=== PATIENT | female | born 1955 | race Caucasian/White ===

== ENCOUNTER 2016-08-15 17:27 | Emergency (ER) | payer MEDICARE ==
[~2016-08-15] VITALS: Ht 158.8 cm; Wt 115.2 kg
[~2016-08-15 17:27] MED LIST changes: -ALBU8.5H INH; -CANA1TAB8 PO; -CARV12.52 PO; -DOXY100T2 PO; -EDOX30TA PO; -HYDR200T PO; -LEVO50TA11 PO; -METH25VI11 IM; -PROP10DR3 BOTH EYES
--- OUTSIDE RECORDS SUMMARY | 2016-08-15 17:32 | XMS REPORT | Referral Summary ---
Author Author [facility] Organization [facility] Address Unknown Phone Unavailable Care Team Providers [facility] Name Role Phone Darcy Zapata Primary Care Physician [phone] Encounter Date(s): 11/29/14 - 11/29/14 [facility] [address] [place] [address] ANIYAH De La Cruz [id number]- [place] Discharge Diagnosis: Psoriatic arthritis Discharge Diagnosis: Antiphospholipid syndrome Discharge Diagnosis: Encounter for long-term (current) use of high-risk medication Discharge Disposition: 01-Home or Self Care Attending Physician: Jayleen Solitario MD Admitting Physician: Jayleen Solitario MD Vital Signs Most recent to 1 oldest [Reference Range]: Temperature Oral 36.9 degC [35.8-37.3 degC] (11/29/14 11:20 AM) Peripheral Pulse 76 bpm Rate [60-100 bpm] (11/29/14 11:20 AM) Respiratory Rate 1 br/min [14-20 br/min] *LOW* (11/29/14 11:20 AM) Blood Pressure 104/64 mmHg [90-140/60-90 mmHg] (11/29/14 11:20 AM) Problem List Condition Effective Dates Status Health Status Informant Cataract(Confirmed) Active CAD (coronary artery Active disease)(Confirmed) Depression(Confirmed Active ) Diabetes Active mellitus(Confirmed) Fibromyalgia(Confirm Active ed) GERD Active (gastroesophageal reflux disease)(Confirmed) Hypertension(Confirm Active ed) Morbid Active patient obesity(Confirmed) Osteoarthritis(Confi Active rmed) Psoriasis(Confirmed) Active Pulmonary Active embolus(Confirmed) Rheumatoid Active arthritis(Confirmed) Sleep Active apnea(Confirmed) Allergies, Adverse Reactions, Alerts Substance Reaction Severity Status azithromycin Active Narcof Active NSAIDs Active Nubain Active Remicade Active Stadol Active Medications Aspirin Low Dose mg, Oral, Daily, 0 Refill(s) Start Date: 11/09/14 Status: Ordered azaTHIOprine 50 mg oral tablet 100 mg 2 tabs, Oral, Daily, # 60 tabs, 1 Refill(s), Pharmacy: [facility], 2 tabs Oral Daily Start Date: 11/29/14 Status: Ordered Benadryl 50 mg, Oral, as needed for allergy symptoms, 0 Refill(s) Start Date: 11/09/14 Status: Ordered CeleXA 40 mg oral tablet mg tabs, Oral, Daily, 0 Refill(s) Start Date: 11/09/14 Status: Ordered Coreg 6.25 mg oral tablet 6.25 mg 1 tabs, Oral, BID, 0 Refill(s) Start Date: 11/09/14 Status: Ordered cyclobenzaprine 10 mg oral tablet 10 mg 1 tabs, Oral, TID, as needed for spasm, 0 Refill(s) Start Date: 11/09/14 Status: Ordered folic acid 1 mg oral tablet mg tabs, Oral, Daily, 0 Refill(s) Start Date: 11/09/14 Status: Ordered Glucophage 1000 mg oral tablet 1,000 mg 1 tabs, Oral, BID, 0 Refill(s) Start Date: 11/09/14 Status: Ordered Imdur 30 mg oral tablet, extended release mg tabs, Oral, qAM, 0 Refill(s) Start Date: 11/09/14 Status: Ordered Klor-Con M20 20 mEq, Oral, to take with lasix, 0 Refill(s) Start Date: 11/09/14 Status: Ordered Lasix 40 mg oral tablet mg tabs, Oral, as needed for edema, 0 Refill(s) Start Date: 11/09/14 Status: Ordered Lipitor 10 mg oral tablet mg tabs, Oral, Bedtime (once a day), 0 Refill(s) Start Date: 11/09/14 Status: Ordered Lovenox 120 mg/0.8 mL injectable solution 120 mg 0.8 mL, SubCutaneous, q12hr, # 5.6 mL, 0 Refill(s) Start Date: 11/09/14 Stop Date: 11/16/14 Status: Ordered Melatonin 3 mg oral tablet 3 mg 1 tabs, Oral, Bedtime (once a day), as needed for insomnia, # 60 tabs, 0 Refill(s) Start Date: 11/09/14 Status: Ordered methadone 10 mg oral tablet 20 mg 2 tabs, Oral, q4hr, 0 Refill(s) Start Date: 11/09/14 Status: Ordered methotrexate 2.5 mg oral tablet 10 mg 4 tabs, Oral, qWeek, 0 Refill(s) Start Date: 11/09/14 Status: Ordered Multiple Vitamins with Zinc oral liquid 0 Refill(s) Start Date: 11/09/14 Status: Ordered Neurontin 600 mg oral tablet 1,200 mg 2 tabs, Oral, TID, 0 Refill(s) Start Date: 11/09/14 Status: Ordered Nitrostat 0.4 mg sublingual tablet 0.4 mg 1 tabs, SubLingual, q5min, as needed for chest pain, 0 Refill(s) Start Date: 11/09/14 Status: Ordered Vitamin B-12 2,000 mcg, SubLingual, Daily, 0 Refill(s) Start Date: 11/09/14 Status: Ordered Vitamin D3 2,000 Intl_Units, Oral, Daily, 0 Refill(s) Start Date: 11/09/14 Status: Ordered Xarelto 1 tabs, Oral, 0 Refill(s) Start Date: 11/29/14 Status: Ordered Zofran 8 mg oral tablet 8 mg 1 tabs, Oral, q6hr, as needed for nausea/vomiting, 0 Refill(s) Start Date: 11/09/14 Status: Ordered Results No data available for this section Immunizations No data available for this section Procedures Procedure Date Related Diagnosis Body Site ACL - Repair of anterior cruciate ligament Appendectomy Carpal tunnel syndrome section Percutaneous coronary intervention Primary fusion of cervical spine Social History Social History Type Response Smoking Status Never smoker Assessment and Plan Extracted from: Title: Office Visit Note Author: Jayleen Solitario MD Date: 11/29/14 Assessment/Plan 1.Psoriatic arthritis We have limitation the use of the methotrexate given her elevated liver tests. She was given a lab slipto recheck these. We will recheck reason she was given a lab slip. We also have limitation medications because her insurance. [facility] theuse of thebiologic medication financial prohibitive as she would be reasonable for 20% of cost of medication and administration. We will give her contact information determine if she might be eligible for cliniccharity.At this timeI will try azathioprine. I reviewed the potential risks which may occur this medication including immunosuppression with risk risk of infection malignancy,cytopenias, pulmonary toxicity, hepatotoxicity but much less as compared to methotrexate and other oral medications. She was given a handout on this medication from [employer]. We also discussed the potential use of apremilast. This is also less expensive medication but they would be no issues with administration. We will try to determine if they have any supportive programs for patients who have Medicare. I did review the potential risks of this medication and she was given a handout from up-to-date on the medication.. 2.Antiphospholipid syndrome I agree with the use of anticoagulation. 3.Encounter for long-term (current) use of high-risk medication She was given a lab slip to check her liver tests, blood counts and also T PMT. Follow-up in 4-6 weeks. Addendum Correction- Patient has rheumatoid arthritis overlap with psoriatic arthritis. by Jayleen Solitario MD on December 05, 2014 12:20:19 CDT
--- OUTSIDE RECORDS SUMMARY | 2016-08-15 17:32 | XMS REPORT | Referral Summary ---
Author Author [facility] Organization [facility] Address Unknown Phone Unavailable Care Team Providers [facility] Name Role Phone Darcy Zapata Primary Care Physician [phone] Encounter Date(s): 11/09/14 - 11/09/14 [facility] [address] [place] [address] ANIYAH De La Cruz [phone]- [place] Discharge Diagnosis: Antiphospholipid syndrome Discharge Diagnosis: Rheumatoid arthritis Discharge Disposition: 01-Home or Self Care Attending Physician: Jayleen Solitario MD Admitting Physician: Jayleen Solitario MD Referring Physician: Bernardino Zapata MD Vital Signs Most recent to 1 oldest [Reference Range]: Peripheral Pulse 129 bpm Rate [60-100 bpm] *HI* (11/09/14 10:44 AM) Blood Pressure 120/85 mmHg [90-140/60-90 mmHg] (11/09/14 10:44 AM) Problem List Condition Effective Dates Status [...] Daily, # 60 tabs, 1 Refill(s), Pharmacy: [facility], 2 tabs Oral Daily Start Date: 11/29/14 [...] Visit Note Author: Jayleen Solitario MD Date: 11/09/14 Assessment/Plan 1.Rheumatoid arthritis She has rheumatoid arthritis and overlap with psoriasis. She does have evidence of active disease on examination particularly in her hands. She also has severe degenerative disease with severe problems with her right knee. She is currently on methotrexate 10 mg for her rheumatoid arthritis.we discussed possibly increasing this dose. She states that she had a recent lab work done and we will request her labs from her oncologistand herP. I have her follow-up in a couple of weeks and we can discuss possibly titrating the methotrexate further. She has had problems in the past with the use of TNF inhibitors. Fortunately at this time there are other Biologics that can be considered that haveminimal risks of hepatotoxicity. We can discuss use of these medications based on how she tolerates and response to increasing the methotrexate. 2.Antiphospholipid syndrome She has been diagnosed with antiphospholipid syndrome based onabnormal labwork including thrombocytopenia and a prior history of a pulmonary embolus. I do not have the records available to me currently from the pasting inspector or from her hospitalization. I had her sign a release of information so that we can get these records. I willhave her follow-up in a couple of weeks and we can review records at that time.
[2016-08-15 17:35] VITALS: TEMP 97.9; Ht 158.8 cm; Wt 115.2 kg
[2016-08-15] MEDS ORDERED: CARV12.52 PO (18:38)
[2016-08-15] MEDS ORDERED: CLOP75TA PO (18:40)
[2016-08-15] MEDS ORDERED: FURO40TA5 PO (18:41)
[2016-08-15] MEDS ORDERED: POTA-81 PO (18:42)
--- NOTE | 2016-08-15 18:43 | ERPDOC ---
Departure Disposition Decision Date: August 15, 2016 Disposition Decision Time: 20:30 Disposition: 01 DISCHARGED HOME, SELF-CARE Impression Impression Impression: Primary Impression: Vaginal bleeding Severity: Moderate Condition: Improved Seen By: Mid-level only Referrals: PETTY BURRIS MD (Family) Patient Instructions: Safe Use of Anticoagulants (ED) Problems/Meds/Labs Reviewed?: Yes Medications reviewed and manag: Yes Additional Instructions: If vaginal bleeding persist call Dr. Burris Wednesday for re-evaluation and possible referral to MERCHANDISE DIRECTOR. If vaginal bleeding becomes brisk (using 6 maxi pads saturated in one hour) return to the ED. Follow treatment plan. Follow up care ordered?: Yes Mental Status: Alert, Oriented HPI - Female General Chief Complaint: Female Urogenital Problems Stated Complaint: VAGINAL BLEEDING Time Seen by Provider: 18:38 Source: patient HPI - Female Allergies: Coded Allergies: broccoli (Verified Allergy, Severe, 08/15/16) infliximab (Verified Allergy, Severe, ANAPHYLACTIC SHOCK, 08/15/16) azithromycin (Verified Allergy, Intermediate, RASH, 08/15/16) NSAIDS (Non-Steroidal Anti-Inflamma (Verified Allergy, Unknown, 08/15/16) butorphanol (Verified Allergy, Unknown, 08/15/16) moxifloxacin (Verified Allergy, Unknown, 08/15/16) nalbuphine (Verified Allergy, Unknown, 08/15/16) butorphanol tartrate (Verified Adverse Reaction, Unknown, JERKING, 08/15/16 ) moxifloxacin HCl (Verified Adverse Reaction, Unknown, CONFUSION, 08/15/16) naloxone HCl (Verified Adverse Reaction, Unknown, JERKING, 08/15/16) Past History Past Medical History Metabolic: cancer, diabetes, gout, hypercholesterolemia, hypertension, hyperthyroidism, hypothyroidism, other Cardiac: CAD, CHF, [place], echocardiogram, other Respiratory: COPD, other, pulmonary embolus GI: IBS, other Female: renal failure, renal insufficiency Neurological: chronic disability Musculoskeletal: other, rheumatoid arthritis Integumentary: eczema, psoriasis, rashes Infectious: other Psychological: depression Surgical History General: neck, other Cardiac: cardiac cath, cardiac stent Reproductive/: hysterectomy Joint: knee Family History Family PMH: FOUND: CHF, AK, cancer, other Vaccines Hx Influenza Vaccination: Yes (12/2014) Hx Pneumococcal Vaccination: Yes (SUMMER 2014) Hx Tetanus, Diptheria, Pertuss: Yes Physical Exam General General Nourishment: well nourished, well developed, adult, obese General Body Habitus: well groomed Vitals and Pain First Documented Vital Signs Date Time Temp Pulse Resp B/P Pulse Ox O2 Delivery O2 Flow Rate FiO2 08/15/16 17:35 97.9 92 20 143/83 93 Room Air Weight: Kilograms: 115.200 Height (feet): 5 Height (inches): 2.50 Triage Pain Scale: Eyes (brief) Eyes Brief: found: EOMI ENMT (brief) ENMT Brief: NOT FOUND: nasal exudate, nasal swelling Neck (brief) Neck: FOUND: trachea midline Respiratory (brief) Respiratory: FOUND: clear all mcneal, equal bilaterally, symmetrical Cardiovascular (brief) Cardiac: FOUND: regular rate, regular rhythm Abdomen (brief) Abdominal Brief: FOUND: bowel normo active x4, other (obese), soft, NOT FOUND: tender Progress Results/Orders Orders Procedure Category Date Status Time Cbc W/Auto LAB 08/15/16 Complete Diff-Reflex Manual Ua, Dip Wreflex LAB 08/15/16 Complete Microsc & Roof Truss Machine Tender 19:47 Lab Results Laboratory Tests Test 08/15/16 19:11 08/15/16 19:51 White Blood Count 5.7T/MM3 Red Blood Count 4.32M/MM3 Hemoglobin 11.9GM/DL Hematocrit 36.7% Mean Corpuscular Volume 85.0UM3 Mean Corpuscular Hemoglobin 27.5UUG Mean Corpuscular Hemoglobin Concent 32.4GM/DL RDW Standard Deviation 55.0FL Platelet Count 135T/MM3 Mean Platelet Volume 11.5UM3 Immature Granulocyte % (Auto) 0.2% Neutrophils (%) (Auto) 66.5% Lymphocytes (%) (Auto) 27.7% Monocytes (%) (Auto) 2.1% Eosinophils (%) (Auto) 3.0% Basophils (%) (Auto) 0.5% Absolute Immature Granulocyte (auto 0.01T/MM3 Absolute Neutrophils (auto) 3.8T/MM3 Absolute Lymphocytes (auto) 1.6T/MM3 Absolute Monocytes (auto) 0.1T/MM3 Absolute Eosinophils (auto) 0.2T/MM3 Absolute Basophils (auto) 0.0T/MM3 Urine Collection Type Straight cath Urine Color Yellow Urine Turbidity Sl cloudy Urine pH 6.0 Urine Specific [place] >=1.030 Urine Protein Trace Urine Glucose (UA) 3+ Urine Ketones Negative Urine Blood Negative Urine Nitrite Negative Urine Bilirubin Negative Urine Urobilinogen 0.2EU/DL Urine Leukocyte Esterase Negative Urinalysis Comment Microscopic not ind. GERALDO FERGUSON [employer]ITIONS HANDLER SUPERVISOR August 15, 2016 18:43
[2016-08-15] MEDS ORDERED: ISOS30TA6 PO (18:45)
[2016-08-15] MEDS ORDERED: HYDR200T PO (18:47)
[2016-08-15] MEDS ORDERED: ALBU8.5H INH (18:51)
[2016-08-15] MEDS ORDERED: METH25VI11 IM (18:52)
[2016-08-15] MEDS ORDERED: DOXY100T2 PO (18:53)
[2016-08-15] MEDS ORDERED: LEVO50TA11 PO (18:53)
[2016-08-15] MEDS ORDERED: PROP10DR3 BOTH EYES (18:55)
[2016-08-15] MEDS ORDERED: EDOX30TA PO (18:56)
[2016-08-15] MEDS ORDERED: CANA1TAB8 PO (18:57)
--- NOTE | 2016-08-15 18:59 | NUR ---
LAB AT BEDSIDE FOR BLOOD DRAW.
[2016-08-15 19:20] LABS: BASOPHILS % (AUTO) 0.5 % (0-2); EOSINOPHILS # (AUTO) 0.2 T/MM3 (0-0.5); HCT - HEMATOCRIT 36.7 % (36-46); HGB - HEMOGLOBIN 11.9 GM/DL (12-16); IMMATURE GRANULOCYTE # (AUTO) 0.01 T/MM3 (0.00-0.03); IMMATURE GRANULOCYTE % (AUTO) 0.2 % (0.0-0.5); LYMPHOCYTES # (AUTO) 1.6 T/MM3 (1-4.8); LYMPHOCYTES % (AUTO) 27.7 % (23-45); MEAN CORPUSCULAR HGB 27.5 UUG (26-34); MEAN CORPUSCULAR HGB CONC(MCHC 32.4 GM/DL (31-37); MEAN PLATELET VOLUME 11.5 UM3 (9.4-12.4); MONOCYTES # (AUTO) 0.1 T/MM3 (0-0.8); MONOCYTES % (AUTO) 2.1 % (0-9.0); NEUTROPHILS #(AUTO)-ABSOLUTE 3.8 T/MM3 (1.8-7.7); NEUTROPHILS % (AUTO) 66.5 % (33-66); RED BLOOD COUNT 4.32 M/MM3 (4.00-5.20); WBC - WHITE BLOOD COUNT 5.7 T/MM3 (4.5-11.0)
--- NOTE | 2016-08-15 19:41 | NUR ---
WILLIAM FERGUSON APRN AT BEDSIDE FOR PELVIC EXAM. THIS RN ACCOMPANIES FOR ASSISTANCE. PT TOLERATES EXAM WELL.
[2016-08-15 20:11] LABS: BLOOD, URINE NEGATIVE (NEGATIVE); COLOR,URINE YELLOW (YELLOW); LEUKOCYTE ESTERASE ,URINE NEGATIVE (NEGATIVE); NITRITE,URINE NEGATIVE (NEGATIVE); UROBILINOGEN,URINE 0.2 EU/DL (NORMAL)
[2016-08-15 20:47] VITALS: BP 116/81; PULSE 91; RESP 20; O2SAT 96
--- NOTE | 2016-08-15 20:47 | NUR ---
DISCHARGE WRITTEN INSTRUCTIONS REVIEWED AND SENT WITH PT. PT VERBALIZES UNDERSTANDING OF DI, DENIES QUESTIONS. PT AMBULATES OUT OF ER WITH STEADY GAIT ACCOMP BY FAMILY AT THIS TIME.
== END 2016-08-15 20:47 | disposition home or self-care (01) ==
LOC: ED 17:27
DX: N93.9 Abnormal uterine and vaginal bleeding, unspecified (principal); Z79.01 Long term (current) use of anticoagulants
CPT/HCPCS: 36415; 51701; 81003; 85025

== ENCOUNTER → 2016-08-15 | Outpatient (CLI) | payer MEDICARE ==
[~2016-08-15] MED LIST: ALBU8.5H INH; ASPI81TA2 PO; ATOR10TA PO; CANA1TAB8 PO; CARV12.52 PO; CARV6.25 PO; CHOL200047 PO; CITA40TA6 PO; CLOP75TA PO; CYAN100022 PO; CYCL-375 PO; DIPH50CA34 PO; DOXY100T2 PO; EDOX30TA PO; FOLI1TAB15 PO; FURO40TA5 PO; GABA-192 PO; HYDR200T PO; ISOS30TA6 PO; LEVO50TA11 PO; MELA3TAB30 PO; METF1000 PO; METH10TA76 PO; METH2.5T6; METH25VI11 IM; MULT-684 PO; NITR0.4T38 SL; ONDA8TAB5 PO; POTA-81 PO; PROP10DR3 BOTH EYES; RIVA20TA PO
[2016-08-15 21:08] LABS: ALBUMIN 4.3 G/DL (3.5-5.0); ALBUMIN/GLOBULIN RATIO 1.2 RATIO (1.1-2.2); ALKALINE PHOSPHATASE 124 U/L (38-126); ALT (SGPT) 41 U/L (9-52); ANION GAP 15 MEQ/L (5-15); AST (SGOT) 27 U/L (14-36); BUN/CREATININE RATIO 25 RATIO (6-26); C-REACTIVE PROTEIN 14.2 MG/L (0-9); CALCIUM 9.4 MG/DL (8.4-10.2); CHLORIDE 103 MEQ/L (98-107); CO2 - CARBON DIOXIDE 26 MEQ/L (22-30); GLOMERULAR FILTRATION RATE 56; GLUCOSE 90 MG/DL (65-110); POTASSIUM 4.3 MEQ/L (3.6-5); SODIUM 144 MEQ/L (134-144); TOTAL PROTEIN 7.8 G/DL (6.3-8.2)
[2016-08-15 21:14] LABS: PROBNP 154 PG/ML (0-175)
== END ==
LOC: LAB 20:49
DX: E11.9 Type 2 diabetes mellitus without complications (principal); I10 Essential (primary) hypertension; I25.9 Chronic ischemic heart disease, unspecified; I50.9 Heart failure, unspecified; M06.9 Rheumatoid arthritis, unspecified
CPT/HCPCS: 80053; 83880; 85652; 86140